=== PATIENT | female | born 1950 | race Two or more races ===

== ENCOUNTER 2018-04-11 07:15 | Day surgery (SDC) | payer OTHER ==
[2018-04-11] VITALS (7 sets, daily range): BP systolic 116–135; BP diastolic 60–72
[~2018-04-11] VITALS: Ht 157.5 cm; Wt 76.2 kg
[~2018-04-11 07:15] MED LIST: OMEPRAZOLE40 M1 ORAL
--- NOTE | 2018-04-11 07:42 | Anethesia Preoperative Eval ---
Anesthesia Pre-op PMH/ROS General Date of Evaluation: Apr 11, 2018 Anesthesiologist: Ryan ASA Score: ASA 2 Mallampati Score Class I : Soft palate, uvula, fauces, pillars visible Class II: Soft palate, uvula, fauces visible Class III: Soft palate, base of uvula visible Class IV: Only hard plate visible Mallampati Classification: Class II Surgeon: Ej Diagnosis: GERD Surgical Procedure: EGD Anesthesia History: none Family History: no anesthesia problems Allergies: Coded Allergies: No Known Allergies (Unverified , 04/10/18) Medications: see eMAR Patient NPO?: Yes NPO Date: Apr 10, 2018 NPO Time: 22:00 Past Medical History Cardiovascular: Denies: HTN, CAD, NH, valve dz, arrhythmia, other Pulmonary: Denies: asthma, COPD, JESSI, other Gastrointestinal/Genitourinary: Reports: GERD, other - h/o barretts esophagus; Denies: CRI, ESRD Neurologic/Psychiatric: Denies: dementia, CVA, depression/anxiety, TIA, other Endocrine: Denies: DM, hypothyroidism, steroids, other HEENT: Denies: cataract (L), cataract (R), glaucoma, SUN'AQ (L), SUN'AQ (R), other Hematology/Immune: Denies: anemia, DVT, bleeding disorder, other Musculoskeletal/Integumentary: Denies: OA, RA, DJD, DDD, edema, other Other: obesity PSxH Narrative: right oophorectomy, right tkr, spine sx, mónica fundoplication Anesthesia Pre-op Phys. Exam Physician Exam Last Vital Signs Date Time Temp Pulse Resp B/P (MAP) Pulse Ox O2 Delivery O2 Flow Rate FiO2 04/11/18 07:40 97.1 58 16 132/60 99 Room Air Constitutional: NAD Cardiovascular: RRR Respiratory: CTA Airway Exam Mallampati Score: Class II MO: full ROM: full Teeth: intact Anesthesia Pre-op A/P Labs see chart Studies Pre-op Studies: EKG - sr Risk Assessment & Plan Assessment: ASA II Plan: MAC Status Change Before Surgery: No Pre-Antibiotics Drug: N/A Kayla Tejada MD Apr 11, 2018 07:42
[2018-04-11] MEDS ORDERED: DiphenhydrAMINE 50mg/ml Inj IVP PRN (07:45)
--- NOTE | 2018-04-11 07:49 | Short Stay Surgery H&P ---
History of Present Illness History of Present Illness Chief Complaint abdominal pains/GERDs HPI Lily Carter is a 68 year old female who was admitted on for GERDS/ abdominal pains Patient History Allergies: Coded Allergies: No Known Allergies (Unverified , 04/10/18) PAST MEDICAL HISTORY: (1) H/O shoulder surgery (2) S/P discectomy Medication History Scheduled Omeprazole (Omeprazole), 40 MG ORAL DAILY, (Reported) Review of Systems Cardiovascular: Reports: no symptoms Respiratory: Reports: no symptoms Skeletal: Reports: trauma Gastrointestinal: Reports: gastro esophageal reflux disease Genitourinary: Reports: no symptoms Neurologic: Reports: no symptoms Endocrine: Reports: no symptoms Hematologic: Reports: no symptoms Physical Exam Vital Signs Last Vital Signs Date Time Temp Pulse Resp B/P (MAP) Pulse Ox O2 Delivery O2 Flow Rate FiO2 04/11/18 07:40 97.1 58 16 132/60 99 Room Air Skin: normal HENT: normal Heart: normal Lungs: normal Abdomen: abnormal Extremities: normal Plan Plan of Care Upper GI endoscopy and biopsy Preop Interventions None Summary of Findings see the reports Attestation Are the patient's medical conditions optimized for surgery? Attestation Response: yes Etienne Pagan MD Apr 11, 2018 07:49
--- NOTE | 2018-04-11 07:50 | Pre-Procedure Note/Attestation ---
Pre-Procedure Note/Attestation Complete Prior to Procedure Planned Procedure: left Procedure Narrative: examination of the upper GI tract via endoscopy with obtaining biopsy Indications for Procedure Pre-Operative Diagnosis: R/O gastritis/Peptic ulcer/esophagitis. Attestation I attest that I discussed the nature of the procedure; its benefits; risks and complications; and alternatives (and the risks and benefits of such alternatives ), prior to the procedure, with the patient (or the patient's legal high school admissions representative). I attest that, if there was a reasonable possibility of needing a blood transfusion, the patient (or the patient's legal high school admissions representative) was given the [place] Department of Health Services standardized written summary, pursuant to the [place] Blood Safety Act ([place] Health and Safety Code # 1645, as amended). I attest that I re-evaluated the patient just prior to the surgery and that there has been no change in the patient's H&P, except as documented below: Etienne Pagan MD Apr 11, 2018 07:50
[2018-04-11] MEDS ORDERED: Lidocaine 1% MPF 10mg/ml 5ml ONE (08:00)
[2018-04-11] MEDS ORDERED: LR 1000ml ONE (08:00)
[2018-04-11] MEDS ORDERED: Propofol 200mg/20ml IV ONE (08:00)
--- NOTE | 2018-04-11 08:21 | Endoscopy Procedure Note ---
Endoscopy Procedure Note General Indication for Procedure: Abdominal painsw/ GERDs Procedures Performed: EGD - Completely normal upper GI endoscopy, no hernández's noted. Biopsies obtained from gastric body and GE junction. Specimen: yes Pt Tolerated Procedure Well: Yes Estimated Blood Loss: none Anesthesia Anesthesiologist: Dr. Davis Anesthesia: moderate sedation Medications Medication Given: see anesthesia record Inserted Devices Implant(s) used?: No Quality Quality of Bowel Preparation: Excellent GI Core Measures 50 yrs or older w/o bx or poly: Not Applicable 10yrs. F/U not recommended: Not Applicable If not recommended, why?: Med reason:<3 yrs.: System Reason:<3 yrs.: Etienne Pagan MD Apr 11, 2018 08:21
--- NOTE | 2018-04-11 08:22 | Discharge Instructions ---
Discharge Instructions Discharge Instructions Follow up with: Visit the doctor after two weeks in the office For Congestive Heart Failure Reminder Report to your physician any weight gain of 5 pounds or more in one week. Etienne Pagan MD Apr 11, 2018 08:22
--- NOTE | 2018-04-11 08:26 | Immediate Post-Op Evaluation ---
Immediate Post-Op Evalulation Immediate Post-Op Evalulation Procedure: EGD Date of Evaluation: Apr 11, 2018 Time of Evaluation: 08:29 IV Fluids: 300 Blood Products: 0 Estimated Blood Loss: 0 Urinary Output: 0 Blood Pressure Systolic: 116 Blood Pressure Diastolic: 62 Pulse Rate: 55 Respiratory Rate: 16 O2 Sat by Pulse Oximetry: 100 Temperature (Fahrenheit): 98.2 Pain Score (1-10): 0 Nausea: No Vomiting: No Complications 0 Patient Status: awake, reacts, patent, none Hydration Status: adequate Drug: N/A Kayla Tejada MD Apr 11, 2018 08:26
--- NOTE | 2018-04-11 08:28 | 48 Hour Post Anesthesia Eval ---
Post Anesthesia Evaluation Procedure: EGD Date of Evaluation: Apr 11, 2018 Airway: patent Nausea: No Vomiting: No Pain Intensity: 0 Hydration Status: adequate Cardiopulmonary Status: at baseline Mental Status/LOC: patient returned to baseline Post-Anesthesia Complications: 0 Follow-up care needed: ready to discharge Kayla Tejada MD Apr 11, 2018 08:28
--- NOTE | 2018-04-11 14:45 | Pre-op HX & Phy Repo 2 SIG ---
DATE OF ADMISSION: 04/11/2018 HISTORY OF PRESENT ILLNESS: This examination is being done preoperatively for the patient who is a 68-year-old female undergoing the procedure for upper GI endoscopy for which she has been scheduled to receive evaluation of gastrointestinal symptoms that she is suffering from. It is important to note that the patient has had history of long-standing gastroesophageal reflux independently for many years ago for which she has received also surgery of Edinson fundoplication in the past. 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 This injury was reported to have happened however long many years ago in 2011, as has been reported. 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 It is important also that she has had many other medical conditions as well that were mentioned in the past medical history. However, at this time, she reports that she is not taking any nonsteroidal anti-inflammatory agents, though she continues to have significant heartburn, which again goes back to her underlying esophageal motility problem, which is independent medical condition mostly not related to work accident in her life except having taken nonsteroidal anti-inflammatory agents in the past. She currently complains of dysphagia and occasional nausea and vomiting. She reports that she is also taking omeprazole with some help in this regard to control the heartburn. As I mentioned, she is not taking any nonsteroidal anti-inflammatory agents such as ibuprofen, Motrin, etc. at this time. 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 One more factor is that she has also had hiatal hernia, as I mentioned. 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 PAST SURGICAL HISTORY: Applicant has had history of dorsolumbar surgery, right shoulder surgery, right knee surgery, and Edinson fundoplication. ALLERGIES: None significant. FAMILY HISTORY: It is reported that the mother has had diabetes. HABITS: The applicant denies drinking alcohol or smoking cigarettes. MEDICATIONS: Currently she takes omeprazole only. REVIEW OF SYSTEMS: Basically history of present illness. Basically, she complains of gastroesophageal reflux symptoms. PHYSICAL EXAMINATION: GENERAL: Reveals alert and oriented female, does not seem to be in any acute distress. She looks overweight. VITAL SIGNS: All stable. HEENT: Normocephalic. Pupils are equal in size and reactive to light and accommodation. No visible jaundice. NECK: Supple. No JVD, thyromegaly, or adenopathy. CHEST: Clear to auscultation and percussion. No rales or rhonchi. HEART: S1, S2 normal. Regular rhythm. No gallops or murmur. ABDOMEN: Soft. There is some mild tenderness over the upper part of the abdomen and different sides of the abdomen as well. However, there was no any hepatosplenomegaly. Bowel sounds are present. EXTREMITIES: Unremarkable. PRELIMINARY PREOPERATIVE IMPRESSION: 1. Epigastric pain, which is consistent with gastroesophageal acid reflux (chronic) due to underlying abnormal esophageal motility possibly NSAID induced, with NSAID aggravation. 2. Status post fundoplication for gastroesophageal reflux and hiatal hernia. 3. 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 4. History of diverticulosis and fatty liver. RECOMMENDATION: The applicant seems to be stable at this time to undergo the procedure of upper GI endoscopy for which she has been scheduled. She understands the risks and benefits and will sign the consent. Said Jethro Pagan DR: BARBARA JOB#: [id number] CC:
--- NOTE | 2018-04-11 14:45 | Operative Note - Dictated ---
DATE OF OPERATION: 04/11/2018 SURGEON: Etienne Pagan M.D. PROCEDURE: Esophagogastroduodenoscopy with biopsy. PREOPERATIVE DIAGNOSES: History of chronic gastroesophageal reflux, Watson's mucosa. POSTOPERATIVE DIAGNOSIS: Completely normal upper GI endoscopy. No evidence of Watson's mucosa noted. Biopsies were taken from GE junction and gastric body. MEDICATION USED: Per Dr. Davis, anesthesiologist. INSTRUMENT: GIF Olympus upper GI video endoscope. DESCRIPTION OF PROCEDURE: The patient after arriving in endoscopy unit, was told about risks and benefits of the procedure, which she accepted and signed informed consent. She was then put on the left lateral decubitus position. After adequate IV sedation, the scope was gently passed through the cricopharyngeal area, was subsequently passed through the esophagus all the way to GE junction. The GE junction was at the level of 30 cm from the cricopharyngeal area. There was no any evidence of hiatal hernia or Watson's mucosa at this time noted. However, a couple of biopsies from the GE junction was taken and subsequently the scope was passed through the stomach. Gastric cavity was distended with insufflation of air. Gradually, the areas of the fundus and the body and the antrum were examined, which revealed completely normal gastric mucosa. No evidence of ulceration, inflammatory process, vascular abnormality, hemangiomas, stricture, etc. was found. A retroflexion maneuver was also applied in the area of the gastroesophageal junction was examined, which again revealed normal findings with no abnormalities noted. At this time, the scope was gradually advanced towards the mid body and the antrum and a random biopsy from gastric body was also obtained. Finally, the scope was passed through normal looking pylorus. First and second portion of duodenum were also found to be completely normal. Finally, the scope was pulled out and procedure was terminated. The patient tolerated the procedure well and left the endoscopy room in a good condition. Etienne Pagan M.D. DR: COREY JOB#: [id number] CC:
== END 2018-04-11 09:25 | disposition home or self-care (01) ==
LOC: GAS 07:15
DX: K21.9 Gastro-esophageal reflux disease without esophagitis (principal); K29.50 Unspecified chronic gastritis without bleeding; E66.9 Obesity, unspecified; K57.30 Diverticulosis of large intestine without perforation or abscess without bleeding; K76.0 Fatty (change of) liver, not elsewhere classified
CPT/HCPCS: 43239; J2704; 94003; 94150